=== PATIENT | female | born 1965 | race Caucasian/White ===

== ENCOUNTER 2016-08-04 10:20 | Emergency (ER) | payer OTHER ==
[~2016-08-04] VITALS: Ht 157.5 cm; Wt 55.8 kg
[~2016-08-04 10:20] MED LIST: BENA25TA3 PO; BUSP10TA PO; CENTTAB8 PO; LORA-400 PO; SIMV20TA PO
[2016-08-04 10:54] VITALS: BP 142/94; PULSE 97; RESP 16; TEMP 98.2; O2SAT 98
[2016-08-04] MEDS ORDERED: DICL25 PO (11:07)
--- NOTE | 2016-08-04 11:09 | PD ---
HPI Chief Complaint: Injury Time Seen by Provider: 11:05 Travel History International Travel<30 days: No Contact w/Intl Traveler<30days: No Traveled to known affect area: No History of Present Illness HPI WHILE GETTING OUT OF CAR PATIENT APPARENTLY FELT A TWINGE ON RIGHT KNEE, HAS NOT IMPROVED AND FEELS WORSE, PT HAD A MENISCAL REPAIR ON THAT SAME KNEE SEVERAL YEARS AGO, TRIED TO GET AN APPT WITH ORTHO BUT ON VACATION PFSH Past Medical History Cancer: Yes (BREAST CANCER) Cardiovascular Problems: No High Cholesterol: Yes Diabetes: No Diminished Hearing: No Endocrine: No Gastrointestinal Disorders: No Glaucoma: No Genitourinary: No Hepatitis: No Hiatal Hernia: No Hypertension: No Immune Disorder: No Medical other: Yes (HIGH CHOLESTEROL, HX INFECTION LEFT RECONSTRUCTION WITH WOUND VAC) Musculoskeletal: Yes (RIGHT KNEE, CHRONIC BACK PAIN) Neurologic: No Psychiatric: Yes (ANXIETY) Reproductive: No Respiratory: Yes (ENVIRONMENTAL ALLERGIES) Thyroid Disease: No Tetanus Vaccination: Unknown ?: Not Past Surgical History Abdominal Surgery: No AICD: No Body Medical Devices: BREAST IMPLANTS Cardiac Surgery: No Ear Surgery: No Endocrine Surgery: No Eye Surgery: No Genitourinary Surgery: No Gynecologic Surgery: Yes (HYSTERECTOMY) Hysterectomy: Yes Joint Replacement: No Neurologic Surgery: No Oral Surgery: No Pacemaker: No Thoracic Surgery: Yes (GAYLA MASTECTOMY WITH RECONSTRUCTION) Other Surgery: Yes (LUMPECTOMY REMOVED 08/21/07 RIGHT) Social History Alcohol Use: Yes (occ) Tobacco Use: No Substance Use: No Allergies-Medications (Allergen,Severity, Reaction): Coded Allergies: Penicillin (Verified Allergy, Intermediate, SWELLING OF FACE AND THROAT, ) Reported Meds & Prescriptions Reported Meds & Active Scripts Active Codeine-Acetaminophen 30-300 mg Tab 1 Tab PO Q4H PRN Reported Diclofenac Sodium DR (Diclofenac Sodium) 25 Mg Tabdr 25 Mg PO BID Centrum Adults (Multiple Vitamins W/ Minerals) 1 Tab 1 Tab PO DAILY Claritin-D 24 HR (Loratadine-Pseudoephedrine 24 HR) 10-240 Mg Tab 1 Tab PO DAILY Buspirone (Buspirone HCl) 10 Mg Tab 10 Mg PO BID Simvastatin 20 Mg Tab 20 Mg PO HS Review of Systems Except as stated in HPI: all other systems reviewed are Neg Musculoskeletal: Positive: Pain (TO RIGHT KNEE) Physical Exam Narrative GENERAL: SKIN: Warm and dry. HEAD: Atraumatic. Normocephalic. EYES: Pupils equal and round. No scleral icterus. No injection or drainage. ENT: No nasal bleeding or discharge. Mucous membranes pink and moist. NECK: Trachea midline. No JVD. CARDIOVASCULAR: Regular rate and rhythm. RESPIRATORY: No accessory muscle use. Clear to auscultation. Breath sounds equal bilaterally. GASTROINTESTINAL: Abdomen soft, non-tender, nondistended. Hepatic and splenic margins not palpable. MUSCULOSKELETAL: Extremities without clubbing, cyanosis, or edema. No obvious deformities. MILD PALPABLE TTP OVER PATELLAR TENDON ONLY NEUROLOGICAL: Awake and alert. No obvious cranial nerve deficits. Motor grossly within normal limits. Five out of 5 muscle strength in the arms and legs. Normal speech. PSYCHIATRIC: Appropriate mood and affect; insight and judgment normal. Data Data Last Documented VS Vital Signs Date Time Temp Pulse Resp B/P Pulse Ox O2 Delivery O2 Flow Rate FiO2 08/04/16 10:54 98.2 97 16 142/94 98 Orders Knee, Complete (4vws) (08/04/16 ) Support Splint (08/04/16 11:05) Ketorolac Inj (Toradol Inj) (08/04/16 11:15) MDM Medical Decision Making Medical Screen Exam Complete: Yes Emergency Medical Condition: Yes Medical Record Reviewed: Yes Differential Diagnosis PATELLAR TENDINITIS, R/O FX OR DISLOCATION Narrative Course BASED ON EXAMINATION APPEARS TO BE RELATED TO PATELLAR TENDINITIS. Diagnosis Primary Impression: Patellar tendinitis of right knee Patient Instructions: General Instructions, Patellar Tendinitis (ED) Additional Instructions: PLEASE MAKE A FOLLOW UP APPOINTMENT WITH YOUR ORTHOPEDIST FOR FURTHER EVALUATION AND CARE Med/Other Pt SpecificInfo: Prescription(s) given Scripts Codeine-Acetaminophen 30-300 mg Tab1 Tab PO Q4H PRN (PAIN) #20 TAB Ref 0 Prov:Devyn Adorno MD 08/04/16 Disposition: 01 DISCHARGE HOME Condition: Stable Devyn Adorno MD Aug 04, 2016 11:09 Devyn Adorno MD Aug 04, 2016 11:09
[2016-08-04] MEDS ORDERED: KETOROLAC TROMETHAMINE 60 MG/2 ML (IM) VIAL IM ONE (11:15)
[2016-08-04] MEDS ORDERED: CODE30TA2 PO (11:43)
--- NOTE | 2016-08-04 11:58 | RADHPO ---
EXAM DATE/TIME: 08/04/2016 11:15 [facility] COMPARISON: No previous studies available for comparison. INDICATIONS : Right knee pain with no known injury MEDICAL HISTORY : None. SURGICAL HISTORY : Right knee meniscus surgery ENCOUNTER: Initial ACUITY: 2 days PAIN SCORE: 5/10 LOCATION: Right lateral knee FINDINGS: Moderate osteoarthritis is noted involving the lateral femoral tibial joint. Mild to moderate osteoa rthritis is noted involving the medial femoral tibial joint and the patellofemoral joint. There is n o acute fracture or dislocation. A small suprapatellar knee joint effusion is noted. CONCLUSION: 1. No acute fracture or dislocation. 2. Moderate osteoarthritis involving the lateral femoral tibial joint and mild to moderate osteoarth ritis in the medial femoral tibial joint and patellofemoral joint. 3. Small suprapatellar knee joint effusion. Juanjo Scales MD on August 04, 2016 at 11:49 Board Certified Radiologist. This report was verified electronically.
== END 2016-08-04 11:59 | disposition home or self-care (01) ==
LOC: PHEFT 10:20
DX: M76.51 Patellar tendinitis, right knee (principal); E78.00 Pure hypercholesterolemia, unspecified; Z85.3 Personal history of malignant neoplasm of breast; Z88.0 Allergy status to penicillin
CPT/HCPCS: 73564; 96372; 99284; J1885

== ENCOUNTER 2017-05-14 07:17 | Day surgery (SDC) | payer OTHER ==
[~2017-05-14] VITALS: Ht 154.9 cm; Wt 55.5 kg
[~2017-05-14 07:17] MED LIST changes: -BENA25TA3 PO; +CODE30TA2 PO; +DICL25 PO
[2017-05-14] MEDS ORDERED: POVIDONE IODINE 5% (ANTISEPSIS KIT) 4 APPLICATIONS EACH NARE SCH (08:00)
[2017-05-14] MEDS ORDERED: MUPIROCIN 2% OINT 1 APPLIC/GM SYR EACH NARE SCH (08:00)
[2017-05-14] MEDS ORDERED: CHLORHEXIDINE GLUCONATE 2 % 1 PACK (2 CLOTHS) TOPICAL SCH (08:00)
[2017-05-14] MEDS ORDERED: SODIUM CHLORIDE 0.9% 1000 ML IV SCH (08:00)
[2017-05-14] MEDS ORDERED: VANCOMYCIN 1000 MG/NS 250 ML - implanted port/tunneled catheter IV SCH ×2 (08:00)
[2017-05-14] MEDS ORDERED: MULT-65 PO (08:14)
[2017-05-14 08:15] VITALS: BP 137/94; PULSE 88; RESP 20; TEMP 98.6; O2SAT 97
[2017-05-14 08:35] LABS: AUTOMATED NEUTROPHIL # 4.8 TH/MM3 (1.8-7.7); BASOPHIL % 0.6 % (0.0-2.0); EOSINOPHIL # 0.2 TH/MM3 (0-0.4); EOSINOPHIL % 1.9 % (0.0-4.0); HEMATOCRIT 39.7 % (35.0-46.0); HEMOGLOBIN 13.2 GM/DL (11.6-15.3); LYMPH % 30.3 % (9.0-44.0); LYMPHOCYTE # 2.5 TH/MM3 (1.0-4.8); MEAN CELL VOLUME 96.3 FL (80.0-100.0); MEAN CORPUSCULAR HGB CONC 33.3 % (32.0-36.0); MEAN PLATELET VOLUME 6.5 FL (7.0-11.0); MONO % 8.7 % (0.0-8.0); MONOCYTE # 0.7 TH/MM3 (0-0.9); NEUT % 58.5 % (16.0-70.0); PLATELET COUNT 352 TH/MM3 (150-450); RED BLOOD COUNT 4.13 MIL/MM3 (4.00-5.30); WHITE BLOOD COUNT 8.1 TH/MM3 (4.0-11.0)
[2017-05-14 08:45] LABS: INTERNATIONAL NORMALIZED RATIO 1.1 RATIO; PROTHROMBIN TIME - PATIENT 10.7 SEC (9.8-11.6)
[2017-05-14] MEDS ORDERED: LIDOCAINE 1%/EPINEPHrine 1:100,000 SOLN 30 ML VIAL ONE (09:29)
[2017-05-14] MEDS ORDERED: fentaNYL CITRATE 250 MCG/5 ML AMP ONE (09:43)
[2017-05-14] MEDS ORDERED: MIDAZOLAM HCL 5 MG/5 ML VIAL ONE (09:43)
[2017-05-14 11:00] VITALS: BP 128/55; PULSE 85; RESP 18; TEMP 97.9; O2SAT 98
[2017-05-14 11:15] VITALS: BP 129/90; PULSE 89; RESP 18; O2SAT 99
[2017-05-14] MEDS ORDERED: SODIUM CHLORIDE 0.9% FLUSH 10 ML FLUSH IVF PRN (11:15)
--- NOTE | 2017-05-14 11:16 | PD.RAD ---
Post Procedure Progress Note Pre Procedure Diagnosis: (1) Breast CA Post Procedure Diagnosis: (1) Breast CA Procedure Date: May 14, 2017 Supervising Radiologist: Mac Ragland JR Proceduralist/Assist: Yahir Rick, RT(R), Dionna Strickland RT(R) Anesthesia: Conscious Sedation Plan of Activity Patient to Unit: ROPU Patient Condition: Good See PACS Report for procedural detail/treatment Central Venous Access Device Procedure 1 Left Infusaport Placement single lumen [place]ian: 8 Findings: Port in good position and functions well. OK to use. Plan f/u with IR in 10-14 days Jr. Obie,Mac Eddy MD May 14, 2017 11:16
--- NOTE | 2017-05-14 11:41 | RADRPT ---
EXAM DATE/TIME: 05/14/2017 09:49 [facility] COMPARISON: No previous studies available for comparison. INDICATIONS : Patient presents with breast cancer in need of port placement for chemotherapy. MEDICAL HISTORY : Breast cancer SURGICAL HISTORY : Bilateral Mastectomy and reconstruction ENCOUNTER: Initial ACUITY: >1 year PAIN SCORE: 0/10 LOCATION: N/A FLUORO TIME: 0.7 minutes IMAGE SERIES: 1 SEDATION TIME: 30 minutes ACCESS: Left internal jugular vein SEDATION: 1.) 4 mg midazolam (Versed) IV 2.) 200 mcg fentanyl (Sublimaze) IV Prophylactic antibiotics were administered with appropriate pre-procedure timing. Vancomycin within 2 hours of procedure, Ancef (or alternative) within 1 hour of procedure. DEVICE: 1. 8 [place] single lumen Xcela Plus Port PROCEDURE : 1. Continuous pulse oximetry and EKG monitoring. 2. Intravenous conscious sedation. 3. Ultrasound guidance for venous access. 4. Fluoroscopic guided implantable central venous port placement. The patient was placed supine. The neck was prepped in sterile fashion. Full sterile technique was u sed, including cap, mask, sterile gloves and gown, and a large sterile sheet. Hand hygiene and 2% ch lorhexidine Betadine was utilized per protocol for cutaneous antisepsis with appropriate dry time for site. Sterile gel and sterile probe cover were utilized for ultrasound guidance. The skin and sub cutaneous tissues were infiltrated with local anesthetic solution. Under direct ultrasound guidance, central venous access was accomplished in the targeted vessel. The ultrasound images depicting access guidance were stored and saved to PACS for permanent record. A s ubcutaneous pocket was created using blunt dissection. The port was introduced to the pocket. The c atheter tubing was fed through a subcutaneous tunnel to the venotomy site. The catheter tubing was c ut to a suitable length and then was introduced through a valved Peel-Away sheath and positioned with catheter tubing tip at the cavo-atrial junction level. The pocket incision was closed with subcutic ular Vicryl suture. Steri-Strips were applied. The port was flushed and locked with heparin solutio n per protocol. Sterile dressing was applied to the site. The patient tolerated the procedure well. Conscious sedation was performed with the prescribed dosages and duration as above in the presence of an independent trained radiology nurse to assist in the monitoring of the patient. EKG and oximetry remained stable throughout the procedure. The patient tolerated the procedure well and there were no complications. The patient was sent to post anesthesia recovery in stable condition. CONCLUSION: Uncomplicated ultrasound and fluoroscopic guided implanted central venous port catheter placement as described in detail above. An 8 [place] [employer] port was placed. Mac Ragland Jr., MD on May 14, 2017 at 11:38 Board Certified Radiologist. This report was verified electronically.
[2017-05-14 11:45] VITALS: BP 135/87; PULSE 83; RESP 18; O2SAT 99
[2017-05-14 12:15] VITALS: BP 152/80; PULSE 86; RESP 18; O2SAT 97
== END 2017-05-14 12:52 | disposition home or self-care (01) ==
LOC: HROP 07:17 → HRIP 07:21 → HROP 12:52
PROVIDERS: ATTEND Internal Medicine Hematology
DX: C50.619 Malignant neoplasm of axillary tail of unspecified female breast (principal); Z01.818 Encounter for other preprocedural examination
CPT/HCPCS: 36561; 76937; 77001; 85025; 85610; 85730; 99152; 99153; C1788; J1642; J2250; J3010; J3370; J7030; J7050